=== PATIENT | female | born 1955 | race Asian ===

== ENCOUNTER 2018-09-08 16:09 | Emergency (ER) | payer MEDICAID ==
[~2018-09-08] VITALS: Ht 165.1 cm; Wt 63.5 kg
[2018-09-08 16:22] VITALS: BP_SYST 114
[2018-09-08] MEDS: MAG HYDROX/AL HYDROX/SIMETH 30 ML, BELLADONNA ALKALOIDS/PHENOBARB 10 ML, LIDOCAINE VISC... PO ONE ×3 (16:59)
[2018-09-08] MEDS: KETOROLAC TROMETHAMINE 30 MG VIAL IVP ONE (16:59)
[2018-09-08 17:09] LABS: BASOPHILS # (AUTO) 0.1 K/uL (0.0-0.2); BASOPHILS % (AUTO) 0.7 % (0.0-2.0); EOSINOPHILS % (AUTO) 0.3 % (0.0-4.0); HEMATOCRIT 40.7 % (36-48); HEMOGLOBIN 13.4 g/dL (12.0-16.0); LYMPHOCYTES % (AUTO) 23.2 % (20.5-51.5); MEAN CORPUSCULAR HEMOGLOBIN 29 pg (27-31); MEAN CORPUSCULAR HGB CONC 33 % (32-36); MEAN CORPUSCULAR VOLUME 89 fL (79.0-98.0); MONOCYTES # (AUTO) 0.5 K/uL (0.0-1.0); MONOCYTES % (AUTO) 6.3 % (1.7-9.3); NEUTROPHILS # (AUTO) 5.9 K/uL (1.8-7.7); NEUTROPHILS % (AUTO) 69.5 % (40.0-70.0); PLATELET COUNT (AUTO) 261 K/uL (130-430); RED BLOOD CELL COUNT(AUTO) 4.59 MIL/uL (4.2-6.2); RED CELL DISTRIBUTION WIDTH 12.6 % (9.0-15.0); WHITE BLOOD COUNT (AUTO) 8.5 K/uL (4.8-10.8)
[2018-09-08 17:18] LABS: CALCIUM 9.5 mg/dL (8.4-11.0); CREATININE 0.69 mg/dL (0.55-1.30); POTASSIUM 4.4 mmol/L (3.5-5.1)
[2018-09-08 17:22] LABS: ALBUMIN 4.1 g/dL (3.4-4.8); TOTAL BILIRUBIN 0.9 mg/dL (0.0-1.0)
[2018-09-08 18:51] VITALS: BP_SYST 112
== END 2018-09-08 18:51 | disposition home or self-care (01) ==
LOC: SED 16:09
DX: R10.12 Left upper quadrant pain (principal); R50.9 Fever, unspecified; R11.0 Nausea
CPT/HCPCS: 36415; 76700; 80053; 83690; 85025; 96374; 99285; J1885; J2001

== ENCOUNTER 2018-10-02 14:34 | Emergency (ER) | payer MEDICAID ==
[~2018-10-02] VITALS: Ht 160 cm; Wt 59.0 kg
[2018-10-02 14:35] VITALS: BP_SYST 98
[2018-10-02] MEDS ORDERED: KETOROLAC TROMETHAMINE 30 MG VIAL IM ONE (17:45)
[2018-10-02 19:40] VITALS: BP_SYST 104
== END 2018-10-02 19:40 | disposition home or self-care (01) ==
LOC: SED 14:34
DX: M76.32 Iliotibial band syndrome, left leg (principal)
CPT/HCPCS: 72170; 73502; 96372; 99284; J1885